=== PATIENT | female | born 1940 | race Asian ===

== ENCOUNTER → 2016-09-14 | Outpatient (CLI) | payer MEDICARE, MEDICAID ==
[~2016-09-14] MED LIST: CARV12 PO; CYAN1TAB44 PO; METF500T4 PO; OMEG1CAP12 PO; SITA100 PO; VITA100049 PO; VITAD1000 PO
== END | disposition home or self-care (01) ==
LOC: RADPV 12:23
PROVIDERS: ATTEND Internal Medicine Critical Care Medicine
DX: J44.9 Chronic obstructive pulmonary disease, unspecified (principal); I70.0 Atherosclerosis of aorta; M41.84 Other forms of scoliosis, thoracic region; J98.4 Other disorders of lung
CPT/HCPCS: 71020

== ENCOUNTER → 2019-08-24 | Outpatient (CLI) | payer MEDICARE, MEDICAID ==
[~2019-08-24] VITALS: Ht 157.5 cm; Wt 50.0 kg
[~2019-08-24] MED LIST changes: +CHOL100018 PO; +GLUC-236 PO; +METF-444 PO; -METF500T4 PO; -VITAD1000 PO
[2019-08-24 11:31] VITALS: BP 140/64
== END | disposition home or self-care (01) ==
LOC: SRCNTR 11:25
PROVIDERS: ATTEND Internal Medicine Critical Care Medicine
DX: I10 Essential (primary) hypertension (principal); E11.9 Type 2 diabetes mellitus without complications; J45.909 Unspecified asthma, uncomplicated; J32.9 Chronic sinusitis, unspecified
CPT/HCPCS: G0463